=== PATIENT | female | born 2000 | race Caucasian/White ===

== ENCOUNTER 2019-11-04 15:47 | Emergency (ER) | payer OTHER ==
[2019-11-04 16:03] VITALS: BP 144/97
[2019-11-04] MEDS ORDERED: MORPHINE SULFATE 10 MG/ML INJ IV ONE ×2 (16:27→17:45)
[2019-11-04] MEDS ORDERED: ONDANSETRON HCL INJ/PF 4 MG/2 ML SDV IV ONE ×2 (16:27→19:48)
--- NOTE | 2019-11-04 16:30 | ER Document Report ---
ED Medical Screen (RME) - General Chief Complaint: Abdominal Pain Stated Complaint: ABDOMINAL PAIN Time Seen by Provider: 11/04/19 16:13 - HPI Notes: 11/04/19 16:28 19-year-old female to the emergency department with complaints of epigastric abdominal pain that has gotten progressively worse and severe since yesterday. She states that she started to have nausea vomiting and then her abdominal pain sat and. She also states that the pain radiates through to her back. She states that she went to [facility] for evaluation and she was given Tylenol, lab work and told that her pain was from vomiting. She states that the pain is nearly unbearable. 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 This occurred in June of this past year. She states that at that time she felt like she had something sitting on her chest and she was short of breath. She states that she has some pain up into her chest but is not quite the same. In triage patient is extremely uncomfortable, writhing in the chair, very tearful. She is tender to palpation in the midline epigastric abdomen. I discussed this patient with my ER attending and we agree that we will move forward with imaging on this patient. Will order chest CTA as well as abdomen pelvis CTA. I placed initial orders to help expedite in her care. She will need to be further managed and evaluated by me inside provider. - Related Data Allergies/Adverse Reactions: No Known Allergies Allergy (Verified 11/04/19 16:06) Past Medical History - Social History Frequency of alcohol use: None Drug Abuse: None Physical Exam - Vital signs Vitals: Temp Pulse Resp BP Pulse Ox 97.9 F 80 16 144/97 H 100 11/04/19 16:00 11/04/19 16:11/04/19 16:00 11/04/19 16:00 11/04/19 16:00 Course - Vital Signs Vital signs: Temp Pulse Resp BP Pulse Ox 97.9 F 80 16 144/97 H 100 11/04/19 16:00 11/04/19 16:00 11/04/19 16:00 11/04/19 16:00 11/04/19 16:00
[2019-11-04 16:53] LABS: ABSOLUTE LYMPHOCYTES (AUTO) 1.9 10^3/uL (0.5-4.7); ABSOLUTE MONOCYTES (AUTO) 0.6 10^3/uL (0.1-1.4); BASOPHILS % (AUTO) 0.5 % (0-2); EOSINOPHILS % (AUTO) 0.3 % (0-6); HEMATOCRIT 39.8 % (36.0-47.0); HEMOGLOBIN 13.9 g/dL (12.0-15.5); LYMPHOCYTES % (AUTO) 34.1 % (13-45); MEAN CORPUSCULAR HEMOGLOBIN 27.5 pg (27.0-33.4); MEAN CORPUSCULAR HGB CONC 34.8 g/dL (32.0-36.0); MEAN CORPUSCULAR VOLUME 79 fl (80-97); MONOCYTES % (AUTO) 11.5 % (3-13); PLATELET COUNT 202 10^3/uL (150-450); RED BLOOD COUNT 5.05 10^6/uL (3.72-5.28); RED CELL DISTRIBUTION WIDTH 15.4 % (11.5-14.0); SEGMENTED NEUTROPHILS % (AUTO) 53.6 % (42-78); TOTAL CELLS COUNTED % (AUTO) 100 %; WHITE BLOOD COUNT 5.5 10^3/uL (4.0-10.5)
[2019-11-04 17:20] LABS: ALBUMIN 4.4 g/dL (3.5-5.0); ALKALINE PHOSPHATASE 83 U/L (38-126); ANION GAP 13 (5-19); ASPARTATE AMINO TRANSFERASE 35 U/L (14-36); BILIRUBIN,DIRECT 0.3 mg/dL (0.0-0.4); BILIRUBIN,TOTAL 0.6 mg/dL (0.2-1.3); BLOOD UREA NITROGEN 10 mg/dL (7-20); CALCIUM 9.8 mg/dL (8.4-10.2); CARBON DIOXIDE 25 mmol/L (22-30); CHLORIDE 99 mmol/L (98-107); GLUCOSE 91 mg/dL (75-110); POTASSIUM 3.7 mmol/L (3.6-5.0); TOTAL PROTEIN 7.9 g/dL (6.3-8.2)
[2019-11-04] MEDS ORDERED: FAMOTIDINE INJ/PF 20 MG/2 ML SDV IV ONE (19:48)
--- NOTE | 2019-11-04 19:49 | RADIOLOGY REPORT (SQ) ---
EXAM DESCRIPTION: U/S OB TRANSVAGINAL W/O DOP COMPLETED DATE/TIME: 11/04/2019 7:30 pm REASON FOR STUDY: + incidental COMPARISON: None. TECHNIQUE: Transvaginal static and realtime grayscale images acquired of the pelvis. Additional milad cted spectral and color Doppler images recorded. All images stored on PACs. bHCG: Not available. CLINICAL DATES: 6 weeks 0 days LIMITATIONS: None. FINDINGS: FETUS: Single Living intrauterine . ULTRASOUND EGA: 6 weeks 1 day ULTRASOUND RODERICK: 06/28/2020 EFW: Not applicable less than 20 weeks. CRL: 3 mm FHR: 99 beats per minute. Low heart tones. SURVEY: Too early to assess. AMNIOTIC FLUID: Adequate amount. PLACENTA: Not yet developed due to early gestation. SUBCHORIONIC BLEED: Yes SIZE OF BLEED: 1.4 x 2 cm UTERUS: No masses. No anomalies. CERVICAL LENGTH: 2.3 cm Closed. RIGHT ADNEXA: Normal ovary with normal vascular flow. No adnexal free fluid. No adnexal masses. LEFT ADNEXA: Normal ovary with normal vascular flow. No adnexal free fluid. No adnexal masses. FREE FLUID: None. OTHER: No other significant finding. IMPRESSION: LIVING INTRAUTERINE . EGA 6 weeks 1 day. Low heart tones 99 beats per minute. Subchorionic hemorrhage. Trimester of : First trimester - 0 to 13 weeks. TECHNICAL DOCUMENTATION: JOB ID: [id number] [employer]- All Rights Reserved rev-02/19 Reading location - IP/workstation name: [email or web address]
--- NOTE | 2019-11-04 19:50 | RADIOLOGY REPORT (SQ) ---
EXAM DESCRIPTION: U/S ABDOMEN COMPLETE W/O DOP COMPLETED DATE/TIME: 11/04/2019 7:30 pm REASON FOR STUDY: epigastric abd pain COMPARISON: None. TECHNIQUE: Dynamic and static grayscale images acquired of the abdomen and recorded on PACS. Additio nal selected color Doppler and spectral images recorded. Note: Study does not meet criteria for complete doppler/duplex scan LIMITATIONS: None. FINDINGS: PANCREAS: Poorly seen. LIVER: No masses. Echotexture normal. LIVER VASCULATURE: Normal directional flow of the main portal vein and hepatic veins. GALLBLADDER: Minimal sludge. No thickening of the gallbladder wall. ULTRASOUND-DETECTED JIMENEZ'S SIGN: Negative. INTRAHEPATIC DUCTS AND COMMON DUCT: CBD and intrahepatic ducts normal caliber. No filling defects. INFERIOR VENA CAVA: Normal flow. AORTA: No aneurysm. RIGHT KIDNEY: Normal size. Normal echogenicity. No solid or suspicious masses. No hydronephros is. No calcifications. LEFT KIDNEY: Normal size. Normal echogenicity. No solid or suspicious masses. No hydronephrosi s. No calcifications. SPLEEN: Normal size. No solid masses. PERITONEAL AND PLEURAL SPACES: No ascites or effusions. OTHER: No other significant finding. IMPRESSION: Minimal sludge in the gallbladder. TECHNICAL DOCUMENTATION: JOB ID: [id number] [employer]- All Rights Reserved Reading location - IP/workstation name: [email or web address]
--- NOTE | 2019-11-05 00:19 | ER Document Report ---
ED General - General Chief Complaint: Abdominal Pain Stated Complaint: ABDOMINAL PAIN Time Seen by Provider: 11/04/19 16:13 Mode of Arrival: Ambulatory Information source: Patient Notes: Patient is a 19-year-old female presenting to the emergency department chief complaint of 2-day history of left upper abdominal pain. Patient states that she was seen at the [facility] yesterday and diagnosed with generalized strain. Patient states that she does not recall overexertion recently denies vomiting or diarrhea but states she is frequently felt nauseated. Patient was seen initially and triage labs were initiated at that time. At time of my evaluation the patient is resting comfortably in hospital bed in no acute distress. TRAVEL OUTSIDE OF THE [place] IN LAST 30 DAYS: No - HPI Onset: Other - 2 days Onset/Duration: Intermittent Quality of pain: Achy Severity: Mild Pain Level: 1 Associated symptoms: Nausea. denies: Body/muscle aches, Diarrhea, Vomiting, Weakness Exacerbated by: Movement Relieved by: Denies Similar symptoms previously: No Recently seen / treated by doctor: Yes - Related Data Allergies/Adverse Reactions: No Known Allergies Allergy (Verified 11/04/19 16:06) Past Medical History - General Information source: Patient - Social History Smoking Status: Never Smoker Frequency of alcohol use: None Drug Abuse: None Lives with: Alone Family History: Reviewed & Not Pertinent Patient has suicidal ideation: No Patient has homicidal ideation: No - Past Medical History Cardiac Medical History: Reports: Other - "SCAD" Spontaneous Coronary Artery Dissection Surgical Hx: Negative Review of Systems - Review of Systems Constitutional: No symptoms reported EENT: No symptoms reported Cardiovascular: No symptoms reported Respiratory: No symptoms reported Gastrointestinal: See HPI, Abdominal pain, Nausea, Poor appetite Genitourinary: No symptoms reported Female Genitourinary: No symptoms reported, Other - LMP Mid September Musculoskeletal: No symptoms reported Skin: No symptoms reported Hematologic/Lymphatic: No symptoms reported Neurological/Psychological: No symptoms reported Physical Exam - Vital signs Vitals: Temp Pulse Resp BP Pulse Ox 97.9 F 80 16 144/97 H 100 11/04/19 16:00 11/04/19 16:00 11/04/19 16:00 11/04/19 16:00 11/04/19 16:00 - General General appearance: Appears well, Alert - HEENT Head: Normocephalic, Atraumatic Eyes: Normal Pupils: PERRL Mucous membranes: Moist Pharynx: Normal Neck: Normal - Respiratory Respiratory status: No respiratory distress Chest status: Nontender Breath sounds: Normal Chest palpation: Normal - Cardiovascular Rhythm: Regular Heart sounds: Normal auscultation Murmur: No - Abdominal Inspection: Normal Distension: No distension Bowel sounds: Normal Tenderness: Tender - Mild epigastric tenderness without rebound or guarding.. No: McBurney's point, Elias's sign, Guarding Organomegaly: No organomegaly - Extremities General upper extremity: Normal inspection, Nontender, Normal color, Normal ROM, Normal temperature General lower extremity: Normal inspection, Nontender, Normal color, Normal ROM, Normal temperature, Normal weight bearing. No: Cruz's sign - Neurological Neuro grossly intact: Yes Cognition: Normal Orientation: AAOx4 Foster Coma Scale Eye Opening: Spontaneous Foster Coma Scale Verbal: Oriented Cornel Coma Scale Motor: Obeys Commands Foster Coma Scale Total: 15 Speech: Normal Motor strength normal: LUE, RUE, LLE, RLE Sensory: Normal - Skin Skin Temperature: Warm Skin Moisture: Dry Skin Color: Normal Course - Re-evaluation Re-evalutation: 11/05/19 01:02 Patient was advised of laboratory and radiologic results. Patient is found to have single living intrauterine of 6 weeks 1 day heart rate of 99 bpm with a small subchorionic hemorrhage. There was also noted on ultrasound minimal gallbladder sludge. I did have to retain the patient for a slightly longer period of time while ascertaining her Rh status. While in the emergency department the patient did receive 2 doses of morphine for pain management but after that she was advised that she needs to take Tylenol for discomfort and [facility]. Patient is discharged home in stable condition. There is no other signs of acute abdominal pathology labs were reviewed demonstrating no significant findings. - Vital Signs Vital signs: Temp Pulse Resp BP Pulse Ox 97.9 F 80 16 144/97 H 100 11/04/19 16:00 11/04/19 16:00 11/04/19 16:00 11/04/19 16:00 11/04/19 16:00 - Laboratory Result Diagrams: 11/04/19 16:25 11/04/19 16:25 Laboratory results interpreted by me: 11/04/19 11/04/19 11/04/19 16:25 16:25 16:25 MCV 79 L RDW 15.4 H Sodium 136.6 L Serum HCG, Qual POSITIVE H Beta HCG, Quant 11/04/19 16:25 MCV RDW Sodium Serum HCG, Qual Beta HCG, Quant 11371.00 H Discharge - Discharge Clinical Impression: Abdominal pain, Condition: Stable Disposition: HOME, SELF-CARE Instructions: Abdominal Pain ([facility]), ([facility]) Additional Instructions: Recommend following up with primary care provider/medical at the [facility] on Thursday. Recommend obtaining HOUSEKEEPER/LAUNDRY ASSISTANT consult. For your abdominal discomfort I recommend only taking Tylenol as needed.
--- NOTE | 2019-11-05 23:38 | EKG REPORT ---
SEVERITY:- NORMAL ECG - SINUS RHYTHM : Confirmed by: Vianca Ballard 05-Nov-2019 23:37:58
== END 2019-11-05 01:00 | disposition home or self-care (01) ==
LOC: ER 15:47
DX: O26.891 Other specified pregnancy related conditions, first trimester (principal); R10.12 Left upper quadrant pain; R10.813 Right lower quadrant abdominal tenderness; R11.0 Nausea; R63.0 Anorexia; O99.611 Diseases of the digestive system complicating pregnancy, first trimester; K82.8 Other specified diseases of gallbladder; O20.8 Other hemorrhage in early pregnancy; Z3A.01 Less than 8 weeks gestation of pregnancy
CPT/HCPCS: 93005; 96376; 99284; 96374; 96375; 86900; 86901; 36415; 84702; 83690; 84703; 85025; 80053; 76817; 76700; 93010; J2270; J2405; S0028